=== PATIENT | female | born 1975 ===

== ENCOUNTER 2020-10-30 02:08 | Emergency (ER) | payer OTHER ==
[~2020-10-30] VITALS: Ht 162.6 cm; Wt 103.9 kg
[~2020-10-30 02:08] MED LIST: AMOX1TAB5 PO; IBUPROFEN800 MG PO
[2020-10-30] MEDS ORDERED: NABUMETONE 500 MG (02:59)
[2020-10-30] MEDS ORDERED: NORFLEC (03:01)
[2020-10-30] MEDS ORDERED: ADVIL (03:03)
[2020-10-30] MEDS ORDERED: NORFLEX100MG PO (10:00)
[2020-10-30] MEDS ORDERED: DICLOFENAC SODI75 MG PO (10:00)
== END 2020-10-30 11:49 | disposition home or self-care (01) ==
LOC: ER 02:08
DX: K57.30 Diverticulosis of large intestine without perforation or abscess without bleeding (principal); M54.89 Other dorsalgia; R10.12 Left upper quadrant pain; Z03.818 Encounter for observation for suspected exposure to other biological agents ruled out